=== PATIENT | female | born 1990 | race Caucasian/White ===

== ENCOUNTER 2023-05-03 08:40 | Outpatient (RCR) | payer OTHER, BC, SELFPAY ==
[2023-04-19] VITALS (10 sets, daily range): BP systolic 125–143; BP diastolic 63–87
[2023-04-19 09:09] LABS: % Basophils 0.7 % (0-2); % Eosinophils 6.2 % (0-6); % Monocytes 8.7 % (1.7-9.3); % Neutrophils 45.4 % (42.2-75.2); Absolute Eosinophils 0.4 10^3/uL (0-0.7); Absolute Immature Granulocytes 0.1 10^3/uL (0-0.05); Absolute Lymphocytes 2.3 10^3/uL (1.2-3.4); Absolute Monocytes 0.5 10^3/uL (0.1-0.6); Absolute Neutrophils 2.7 10^3/uL (1.4-6.5); Hematocrit 35.8 % (37.0-47.0); Hemoglobin 12.8 g/dL (12.0-16.0); Mean Corp Hgb Conc. 35.8 g/dL (33.0-37.0); Mean Corpuscular Hgb 31.7 pg (27.0-31.0); Mean Corpuscular Volume 88.6 fL (81.0-99.0); Mean Platelet Volume 11.1 fL (7.4-10.4); Platelet Count 222 10^3/uL (130-400); Red Blood Cell Count 4.04 10^6/uL (4.20-5.40); Red Cell Dist. Width 13.4 % (11.5-14.5)
[2023-04-19] MEDS: TYLENOL 650 MG PO (09:29)
[2023-04-19] MEDS: NSS 500 IV (09:30)
[2023-04-19] MEDS: SOLU-MEDROL PF 51.6000000000000014 MG IV (09:44)
[2023-04-19] MEDS: BENADRYL 51 MG IV (10:18)
[2023-04-19] MEDS: OCREVUS 260 MG IV (10:47)
[2023-05-03] VITALS (9 sets, daily range): BP systolic 104–117; BP diastolic 59–79
[2023-05-03 09:07] LABS: % Basophils 1.5 % (0-2); % Eosinophils 3.9 % (0-6); % Immature Granulocytes 0.4 % (0-0.5); % Lymphocytes 27.5 % (20.5-51.1); % Neutrophils 54.7 % (42.2-75.2); Absolute Basophils 0.1 10^3/uL (0-0.2); Absolute Eosinophils 0.2 10^3/uL (0-0.7); Absolute Lymphocytes 1.3 10^3/uL (1.2-3.4); Absolute Monocytes 0.6 10^3/uL (0.1-0.6); Absolute Neutrophils 2.5 10^3/uL (1.4-6.5); Hematocrit 38.5 % (37.0-47.0); Hemoglobin 13.6 g/dL (12.0-16.0); Mean Corp Hgb Conc. 35.3 g/dL (33.0-37.0); Mean Corpuscular Hgb 31.6 pg (27.0-31.0); Mean Corpuscular Volume 89.3 fL (81.0-99.0); Mean Platelet Volume 10.3 fL (7.4-10.4); Platelet Count 258 10^3/uL (130-400); Red Blood Cell Count 4.31 10^6/uL (4.20-5.40); Red Cell Dist. Width 13.1 % (11.5-14.5); White Blood Cell Count 4.7 10^3/uL (4.8-10.8)
[2023-05-03] MEDS: TYLENOL 650 MG PO (09:11)
[2023-05-03] MEDS: SOLU-MEDROL PF 51.6000000000000014 MG IV (09:11)
[2023-05-03] MEDS: NSS 500 IV (09:12)
[2023-05-03] MEDS: BENADRYL 51 MG IV (09:39)
[2023-05-03] MEDS: OCREVUS 260 MG IV (10:15)
== END 2023-05-04 23:59 | disposition home or self-care (01) ==
LOC: OID 08:40
PROVIDERS: ATTENDING PHYSICIAN Psychiatry & Neurology Neurology; FAMILY PHYSICIAN Family Medicine; PRIMARYCARE PHYSICIAN Psychiatry & Neurology Neurology
DX: G35 Multiple sclerosis (principal)
CPT/HCPCS: 36415; 85025; 96361; 96367; 96413; 96415; J2350

== ENCOUNTER → 2023-05-30 17:46 | Outpatient (REF) | payer OTHER, BC, SELFPAY | LOC: RAD 17:46 | PROVIDERS: ATTENDING PHYSICIAN Family Medicine | DX: R06.2 Wheezing (principal) | CPT/HCPCS: 71046 ==

== ENCOUNTER → 2023-09-28 15:41 | Outpatient (REF) | payer OTHER, BC, SELFPAY | LOC: PNTC 15:41 | PROVIDERS: ATTENDING PHYSICIAN Obstetrics & Gynecology | DX: Z36.0 Encounter for antenatal screening for chromosomal anomalies (principal); Z36.82 Encounter for antenatal screening for nuchal translucency | CPT/HCPCS: 76801; 76813 ==

== ENCOUNTER → 2023-10-19 16:43 | Outpatient (REF) | payer OTHER, BC, SELFPAY | LOC: PNTC 16:43 | PROVIDERS: ATTENDING PHYSICIAN Obstetrics & Gynecology | DX: O10.119 Pre-existing hypertensive heart disease complicating pregnancy, unspecified trimester (principal) | CPT/HCPCS: 76805 ==

== ENCOUNTER → 2024-02-08 15:59 | Outpatient (REF) | payer OTHER, BC, SELFPAY | LOC: PNTC 15:59 | PROVIDERS: ATTENDING PHYSICIAN Obstetrics & Gynecology | DX: O10.119 Pre-existing hypertensive heart disease complicating pregnancy, unspecified trimester (principal) | CPT/HCPCS: 59025 ==

== ENCOUNTER → 2024-02-15 16:39 | Outpatient (REF) | payer OTHER, BC, SELFPAY | LOC: PNTC 16:39 | PROVIDERS: ATTENDING PHYSICIAN Obstetrics & Gynecology | DX: O10.119 Pre-existing hypertensive heart disease complicating pregnancy, unspecified trimester (principal) | CPT/HCPCS: 59025 ==

== ENCOUNTER → 2024-02-22 16:31 | Outpatient (REF) | payer OTHER, BC, SELFPAY | LOC: PNTC 16:31 | PROVIDERS: ATTENDING PHYSICIAN Obstetrics & Gynecology | DX: O13.9 Gestational [pregnancy-induced] hypertension without significant proteinuria, unspecified trimester (principal) | CPT/HCPCS: 59025 ==

== ENCOUNTER → 2024-02-29 13:54 | Outpatient (REF) | payer OTHER, BC, SELFPAY | LOC: PNTC 13:54 | PROVIDERS: ATTENDING PHYSICIAN Obstetrics & Gynecology | DX: O10.019 Pre-existing essential hypertension complicating pregnancy, unspecified trimester (principal) | CPT/HCPCS: 59025; 76815 ==

== ENCOUNTER → 2024-03-07 16:04 | Outpatient (REF) | payer OTHER, BC, SELFPAY | LOC: PNTC 16:04 | PROVIDERS: ATTENDING PHYSICIAN Obstetrics & Gynecology | DX: O10.119 Pre-existing hypertensive heart disease complicating pregnancy, unspecified trimester (principal) | CPT/HCPCS: 59025 ==

== ENCOUNTER 2024-03-10 15:14 | Observation (INO) | payer OTHER, BC, SELFPAY ==
[2024-03-10 15:28] VITALS: BP 132/90; BMI 28.2
[2024-03-10 16:18] LABS: % Basophils 0.7 % (0-2); % Eosinophils 0.6 % (0-6); % Immature Granulocytes 1.7 % (0-0.5); % Lymphocytes 14.1 % (20.5-51.1); % Monocytes 7.2 % (1.7-9.3); % Neutrophils 75.7 % (42.2-75.2); Absolute Basophils 0.1 10^3/uL (0-0.2); Absolute Eosinophils 0.1 10^3/uL (0-0.7); Absolute Immature Granulocytes 0.1 10^3/uL (0-0.05); Absolute Lymphocytes 1.1 10^3/uL (1.2-3.4); Absolute Monocytes 0.6 10^3/uL (0.1-0.6); Absolute Neutrophils 6.1 10^3/uL (1.4-6.5); Hematocrit 37.6 % (37.0-47.0); Mean Corp Hgb Conc. 34.6 g/dL (33.0-37.0); Mean Corpuscular Hgb 31.4 pg (27.0-31.0); Mean Corpuscular Volume 90.8 fL (81.0-99.0); Mean Platelet Volume 11.2 fL (7.4-10.4); Nucleated Red Blood Cells % 0 %; Platelet Count 200 10^3/uL (130-400); Red Blood Cell Count 4.14 10^6/uL (4.20-5.40); Red Cell Dist. Width 12.3 % (11.5-14.5); White Blood Cell Count 8.1 10^3/uL (4.8-10.8)
[2024-03-10 16:31] LABS: ALT (SGPT) 33 U/L (0-35); AST (SGOT) 34 U/L (14-36); Alkaline Phosphatase 81 U/L (38-126); Blood Urea Nitrogen 6 mg/dl (7-17); Calcium 9.7 mg/dl (8.4-10.2); Carbon Dioxide 24 mmol/L (22-30); Chloride 103 mmol/L (98-107); Estimated Creatinine Clearance > 125 ml/min; Glucose 85 mg/dl (70-99); Potassium 4.2 mmol/L (3.5-5.1); Sodium 134 mmol/L (135-145); Total Bilirubin 0.4 mg/dl (0.2-1.3); Total Protein 6.6 g/dl (6.3-8.2); Uric Acid 3.7 mg/dl (2.5-6.2); eGFR > 60.00
[2024-03-10 16:53] LABS: Protein/creatinine Ratio 0.6; Urine Protein 11 mg/dl
== END 2024-03-10 21:43 | disposition home or self-care (01) ==
LOC: LDRP 15:14
PROVIDERS: ADMITTING PHYSICIAN Obstetrics & Gynecology
DX: O13.3 Gestational [pregnancy-induced] hypertension without significant proteinuria, third trimester (principal); R51.9 Headache, unspecified; O99.353 Diseases of the nervous system complicating pregnancy, third trimester; G35 Multiple sclerosis; Z3A.32 32 weeks gestation of pregnancy; Z88.8 Allergy status to other drugs, medicaments and biological substances; Z80.3 Family history of malignant neoplasm of breast
CPT/HCPCS: 80053; 82570; 84156; 84550; 85025; 86850; 86900; 86901; G0378

== ENCOUNTER → 2024-03-12 16:30 | Outpatient (REF) | payer OTHER, BC, SELFPAY | LOC: PNTC 16:30 | PROVIDERS: ATTENDING PHYSICIAN Obstetrics & Gynecology | DX: O10.119 Pre-existing hypertensive heart disease complicating pregnancy, unspecified trimester (principal) | CPT/HCPCS: 59025; 76815 ==

== ENCOUNTER 2024-03-14 19:39 | Inpatient (IN) | payer OTHER, BC, SELFPAY ==
[2024-03-14 19:44] VITALS: BMI 28.2
[2024-03-14] MEDS: CYTOTEC 25 MICROGRAM VAG (20:45)
[2024-03-14 21:08] LABS: % Basophils 0.4 % (0-2); % Eosinophils 1.1 % (0-6); % Immature Granulocytes 1.6 % (0-0.5); % Lymphocytes 18.9 % (20.5-51.1); % Monocytes 8.5 % (1.7-9.3); % Neutrophils 69.5 % (42.2-75.2); Absolute Eosinophils 0.1 10^3/uL (0-0.7); Absolute Immature Granulocytes 0.1 10^3/uL (0-0.05); Absolute Lymphocytes 1.4 10^3/uL (1.2-3.4); Absolute Monocytes 0.6 10^3/uL (0.1-0.6); Absolute Neutrophils 5.1 10^3/uL (1.4-6.5); Hematocrit 32.6 % (37.0-47.0); Hemoglobin 11.5 g/dL (12.0-16.0); Mean Corp Hgb Conc. 35.3 g/dL (33.0-37.0); Mean Corpuscular Hgb 31.3 pg (27.0-31.0); Mean Corpuscular Volume 88.6 fL (81.0-99.0); Mean Platelet Volume 11.5 fL (7.4-10.4); Nucleated Red Blood Cells % 0 %; Platelet Count 182 10^3/uL (130-400); Red Blood Cell Count 3.68 10^6/uL (4.20-5.40); Red Cell Dist. Width 12.3 % (11.5-14.5); White Blood Cell Count 7.4 10^3/uL (4.8-10.8)
[2024-03-14 21:56] LABS: ALT (SGPT) 25 U/L (0-35); AST (SGOT) 28 U/L (14-36); Albumin 3.5 g/dl (3.5-5.0); Alkaline Phosphatase 75 U/L (38-126); Blood Urea Nitrogen 7 mg/dl (7-17); Calcium 9.4 mg/dl (8.4-10.2); Carbon Dioxide 20 mmol/L (22-30); Chloride 105 mmol/L (98-107); Estimated Creatinine Clearance > 125 ml/min; Glucose 101 mg/dl (70-99); Potassium 3.7 mmol/L (3.5-5.1); Sodium 133 mmol/L (135-145); Total Bilirubin 0.3 mg/dl (0.2-1.3); Total Protein 5.8 g/dl (6.3-8.2); eGFR > 60.00
[2024-03-14] MEDS: TRANDATE 300 MG PO (22:36)
[2024-03-14 23:10] VITALS: BP 133/86
[2024-03-15] MEDS: CYTOTEC 50 MICROGRAM PO ×2 (00:49→04:54)
[2024-03-15] MEDS: TRANDATE 300 MG PO (08:53)
[2024-03-15] MEDS: CYTOTEC PO (09:39)
[2024-03-15] MEDS: LR 1000 IV ×3 (09:39→21:19)
[2024-03-15] MEDS: PITOCIN 30 UNITS/NSS 500 ML IV (09:41)
[2024-03-15] MEDS: TRANDATE PO (20:50)
[2024-03-15] MEDS: SUBLIMAZE 100 MCG EPIDURAL (21:17)
[2024-03-15] MEDS: FENTANYL/BUPIVACAINE 100 EPIDURAL (21:24)
[2024-03-16] MEDS: BICITRA 30 ML PO (03:37)
[2024-03-16] MEDS: TYLENOL 1000 MG PO (03:37)
[2024-03-16] MEDS: ANCEF 10 IV (03:37)
[2024-03-16] MEDS: ZITHROMAX INFUSION 250 IV (03:40)
[2024-03-16 04:20] LABS: B.E. Cord ABG -1.6 mMOL/L; HCO3 Cord ABG 25.2 mmol/L; O2 Saturation % Cord ABG 50.2 %; PCO2 Cord ABG 49 mmHg; PO2 Cord ABG 25 mmHg; pH Cord ABG 7.32
[2024-03-16 04:21] LABS: Cord ABG Comment CORD BLOOD
[2024-03-16 04:23] LABS: B.E. Cord ABG -2.2 mMOL/L; HCO3 Cord ABG 23.2 mmol/L; O2 Saturation % Cord ABG 71.5 %; PCO2 Cord ABG 41 mmHg; PO2 Cord ABG 35 mmHg; pH Cord ABG 7.36
[2024-03-16] MEDS: VITAMIN D3 (cholecalciferol) PO (06:20)
[2024-03-16] MEDS: COLACE 100 MG PO (08:58)
[2024-03-16] MEDS: TRANDATE 300 MG PO ×2 (08:58→20:49)
[2024-03-16] MEDS: PRENATAL PLUS 1 TABLET PO (08:58)
[2024-03-16] MEDS: TORADOL 15 MG IV ×3 (10:37→22:35)
[2024-03-17] MEDS: TORADOL 15 MG IV (04:29)
[2024-03-17 05:44] LABS: Hemoglobin 10.4 g/dL (12.0-16.0); Mean Corp Hgb Conc. 34.7 g/dL (33.0-37.0); Mean Corpuscular Hgb 31.3 pg (27.0-31.0); Mean Corpuscular Volume 90.4 fL (81.0-99.0); Mean Platelet Volume 11.9 fL (7.4-10.4); Platelet Count 142 10^3/uL (130-400); Red Blood Cell Count 3.32 10^6/uL (4.20-5.40); Red Cell Dist. Width 12.4 % (11.5-14.5); White Blood Cell Count 11.4 10^3/uL (4.8-10.8)
[2024-03-17] MEDS: PRENATAL PLUS 1 TABLET PO (10:28)
[2024-03-17] MEDS: COLACE 100 MG PO (10:28)
[2024-03-17] MEDS: TRANDATE 300 MG PO ×2 (10:33→20:19)
[2024-03-17] MEDS: TYLENOL 650 MG PO (11:06)
[2024-03-17] MEDS: VITAMIN D3 (cholecalciferol) 100 MCG PO (11:07)
[2024-03-17] MEDS: MOTRIN 600 MG PO ×2 (11:07→18:03)
[2024-03-17] MEDS: PERCOCET 5/325 1 TABLET PO (14:59)
[2024-03-18] MEDS: MOTRIN 600 MG PO ×3 (00:34→18:14)
[2024-03-18] MEDS: TYLENOL 650 MG PO ×3 (00:34→18:15)
--- NOTE | 2024-03-18 07:15 | W.PN.ANS.POP ---
Anesthesia Post Operative
- Anesthesia Post Op Note
Vital Signs Stable-See Nursing Note: Yes (patient sleeping comfortably, chart reviewed, no apparent anesthesia issues)
Airway Patent: Yes
Adequate Pain Control: Yes
Change in Mental Status: No
Current Postoperative Nausea & Vomiting: No
Anesthesia Complications: No
General Anesthetic Recall: No
Unplanned Admission: No
Post Op Hydration Adequate: Yes
[2024-03-18] MEDS: COLACE 100 MG PO (08:24)
[2024-03-18] MEDS: VITAMIN D3 (cholecalciferol) 100 MCG PO (08:24)
[2024-03-18] MEDS: TRANDATE 300 MG PO (08:24)
[2024-03-18] MEDS: PRENATAL PLUS 1 TABLET PO (08:24)
[2024-03-18] MEDS: TRANDATE 100 MG PO (12:11)
[2024-03-18] MEDS: TRANDATE 400 MG PO (20:29)
[2024-03-19] MEDS: MOTRIN 600 MG PO ×2 (00:58→08:46)
[2024-03-19] MEDS: TYLENOL 650 MG PO ×2 (00:58→08:45)
[2024-03-19] MEDS: TRANDATE 600 MG PO (07:58)
[2024-03-19] MEDS: PRENATAL PLUS 1 TABLET PO (07:59)
[2024-03-19] MEDS: COLACE 100 MG PO (08:00)
[2024-03-19] MEDS: VITAMIN D3 (cholecalciferol) 100 MCG PO (08:46)
[2024-03-19 16:06] LABS: Syphilis/T. pallidum Ab Reflex Negative (Negative)
== END 2024-03-19 14:33 | disposition home or self-care (01) | DRG 787 ==
LOC: LDRP 19:39
PROVIDERS: Obstetrics & Gynecology; ADMITTING PHYSICIAN Obstetrics & Gynecology
PROC: 3E0P7VZ Introduction of Hormone into Female Reproductive, Via Natural or Artificial Opening (ICD-10-PCS; 2024-03-14)
PROC: 0U7C7ZZ Dilation of Cervix, Via Natural or Artificial Opening (ICD-10-PCS; 2024-03-15)
PROC: 3E033VJ Introduction of Other Hormone into Peripheral Vein, Percutaneous Approach (ICD-10-PCS; 2024-03-15)
PROC: 10907ZC Drainage of Amniotic Fluid, Therapeutic from Products of Conception, Via Natural or Artificial Opening (ICD-10-PCS; 2024-03-16)
PROC: 10D00Z1 Extraction of Products of Conception, Low, Open Approach (ICD-10-PCS; 2024-03-16)
DX: O11.4 Pre-existing hypertension with pre-eclampsia, complicating childbirth (principal); O99.354 Diseases of the nervous system complicating childbirth; Z3A.37 37 weeks gestation of pregnancy; Z37.0 Single live birth; O76 Abnormality in fetal heart rate and rhythm complicating labor and delivery; O34.13 Maternal care for benign tumor of corpus uteri, third trimester; D25.9 Leiomyoma of uterus, unspecified; G35 Multiple sclerosis
CPT/HCPCS: 88307; 80053; 82803; 85025; 85027; 86780; 86850; 86900; 86901

== ENCOUNTER → 2024-04-18 13:02 | Outpatient (REF) | payer OTHER, BC, SELFPAY | LOC: RAD 13:02 | PROVIDERS: ATTENDING PHYSICIAN Nurse Practitioner Family | DX: Z13.29 Encounter for screening for other suspected endocrine disorder (principal) | CPT/HCPCS: 76536 ==